=== PATIENT | female | born 1980 | race Caucasian/White ===

== ENCOUNTER 2023-12-30 21:14 | Emergency (ER) | payer OTHER, SELFPAY ==
[2023-12-30 21:19] VITALS: BP 120/74; PULSE 73; RESP 16; TEMP 36.1; O2SAT 94; BMI 32.5
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
[2023-12-30 21:47] VITALS: BP 128/74; PULSE 76; RESP 16; O2SAT 99
[2023-12-30] MEDS: HYDROcodone-acetaminophen 5-325 mg Tablet 1 TAB PO (22:12)
[2023-12-30] MEDS: bacitracin ointment Pkt 1 EACH TOPICAL (22:33)
[2023-12-30 22:50] VITALS: BP 138/80; PULSE 78; O2SAT 98
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
== END 2023-12-30 22:52 | disposition home or self-care (01) ==
PROVIDERS: Emergency Provider Emergency Medicine; PCP Nurse Practitioner
DX: T23.251A Burn of second degree of right palm, initial encounter (principal); X00.0XXA Exposure to flames in uncontrolled fire in building or structure, initial encounter
CPT/HCPCS: 99283